=== PATIENT | male | born 1985 | race Caucasian/White ===

== ENCOUNTER 2016-11-20 22:32 | Emergency (ER) | payer OTHER ==
[~2016-11-20] VITALS: Ht 188 cm; Wt 102.6 kg
[2016-11-20 23:48] LABS: EOSINOPHIL (%) 0.3 % (0-5); HEMATOCRIT 35.3 % (38.0-50.0); IMMATURE GRANULOCYTE (%) 1.6 % (0.0-0.7); IMMATURE GRANULOCYTE COUNT 1.5 K/uL; LYMPHOCYTE COUNT 1.2 K/uL (1.0-2.8); MCH 25.1 PG (29.0-34.0); MCHC 32.3 G/DL (30.0-36.0); MCV 77.6 FL (86-99); MEAN PLAT.VOLUME 9.7 uM^3 (9.0-12.4); MONOCYTE (%) 7.8 % (3-12); MONOCYTE COUNT 0.7 K/uL (0-0.8); NEUTROPHIL (%) 76.9 % (45-76); PLATELET COUNT 370 K/uL (156-360); RBC DIS.WIDTH-CV 15.4 % (11.8-14.6); RBC DIS.WIDTH-SD 41.9 % (39-53); RED BLOOD COUNT 4.55 M/uL (4.00-5.50); WHITE BLOOD COUNT 9.1 K/uL (4.1-10.2)
[2016-11-20 23:58] LABS: CHLORIDE 109 mEq/L (99-109); POTASSIUM 4.2 mEq/L (3.7-5.4); SODIUM 141 mEq/L (136-147)
[2016-11-21] LABS: GLUCOSE 95 mg/dL (70-99)
[2016-11-21 00:01] LABS: ANION GAP 9 MEQ/L (2-14)
[2016-11-21 00:02] LABS: ADD MIUA? NO; BILIRUBIN NEGATIVE; BLOOD NEGATIVE; COLOR YELLOW ((YELLOW)); GLUCOSE (STRIP) NEGATIVE; KETONES NEGATIVE; LEUKOCYTES NEGATIVE; NITRITE NEGATIVE; PROTEIN (STRIP) TRACE; SPECIFIC GRAVITY 1.015 (1.000-1.030); UCUL ADDED? NO; UROBILINOGEN 0.2 MG/DL (0.2-1.0)
[2016-11-21 00:02] LABS: TOTAL BILIRUBIN 0.2 mg/dL (0.0-1.0)
[2016-11-21 00:03] LABS: SERUM ETHYL ALCOHOL < 10 mg/dL
[2016-11-21 00:04] LABS: ALKALINE PHOSPHATASE 76 IU/L (3-129); GFR ESTIMATE (CALCULATED) > 59 mL/min/
[2016-11-21 00:05] LABS: UREA NITROGEN (BUN) 6 mg/dL (9-23)
[2016-11-21 00:16] LABS: AMPHETAMINE NEGATIVE (500 ng/mL); BENZODIAZEPINES NEGATIVE (150 ng/mL); COCAINE PRESUMPTIVE POSITIVE (150 ng/mL); METHADONE PRESUMPTIVE POSITIVE (200 ng/mL); METHAMPHETAMINE NEGATIVE (500 ng/mL); OPIATES (MORPHINE) PRESUMPTIVE POSITIVE (100 ng/mL); PHENCYCLIDINE NEGATIVE (25 ng/mL); THC CANNABINOIDS NEGATIVE (50 ng/mL); TRICYCLIC ANTIDEPRESSANTS NEGATIVE (300 ng/mL)
[2016-11-21 00:17] LABS: ADD MEDTOX COMMENT Y; BARBITURATES NEGATIVE (200 ng/mL); INTERNAL CONTROLS VALID? YES; OXYCODONE NEGATIVE (100 ng/mL); PROPOXYPHENE NEGATIVE (300 ng/mL)
[2016-11-21] MEDS ORDERED: TORADOL10 MG PO (01:28)
[2016-11-21 02:07] VITALS: BP 126/81
== END 2016-11-21 02:08 | disposition home or self-care (01) ==
LOC: EME → EDBD 22:32 → EME 22:32
PROVIDERS: Emergency Medicine
DX: R56.9 Unspecified convulsions (principal); M54.9 Dorsalgia, unspecified; S20.212A Contusion of left front wall of thorax, initial encounter; F19.10 Other psychoactive substance abuse, uncomplicated; W18.30XA Fall on same level, unspecified, initial encounter; Y92.009 Unspecified place in unspecified non-institutional (private) residence as the place of occurrence of the external cause; F17.200 Nicotine dependence, unspecified, uncomplicated
CPT/HCPCS: 70450; 71010; 80053; 81003; 83605; 84999; 85025; 87040; 93005; 99281; 99285; G0480; J1885; J2405; J3010; J7030

== ENCOUNTER 2017-09-20 13:20 | Emergency (ER) | payer OTHER ==
[~2017-09-20] VITALS: Ht 182.9 cm; Wt 105.1 kg
[~2017-09-20 13:20] MED LIST: TORADOL10 MG PO
[2017-09-20 14:43] VITALS: BP 115/78
== END 2017-09-20 14:44 | disposition left against medical advice (07) ==
LOC: EME 13:20
DX: F11.10 Opioid abuse, uncomplicated (principal); F17.200 Nicotine dependence, unspecified, uncomplicated

== ENCOUNTER 2017-09-20 16:39 | Inpatient (IN) | payer OTHER ==
[~2017-09-20] VITALS: Ht 188 cm; Wt 108.9 kg
[2017-09-20 21:17] LABS: EOSINOPHIL (%) 0.1 % (0-5); HEMATOCRIT 31.6 % (38.0-50.0); IMMATURE GRANULOCYTE (%) 0.9 % (0.0-0.7); IMMATURE GRANULOCYTE COUNT 0.1 K/uL; INSTRUMENT ABS NEUTROPHIL CT 10.1 K/uL; LYMPHOCYTE COUNT 0.8 K/uL (1.0-2.8); MCH 24.1 PG (29.0-34.0); MCHC 31.6 G/DL (30.0-36.0); MCV 76.1 FL (86-99); MEAN PLAT.VOLUME 9.1 uM^3 (9.0-12.4); MONOCYTE (%) 5.8 % (3-12); MONOCYTE COUNT 0.7 K/uL (0-0.8); NEUTROPHIL (%) 86.5 % (45-76); NEUTROPHIL COUNT 10.1 K/uL (1.8-6.4); PLATELET COUNT 318 K/uL (156-360); RBC DIS.WIDTH-CV 17.2 % (11.8-14.6); RBC DIS.WIDTH-SD 47.7 % (39-53); RED BLOOD COUNT 4.15 M/uL (4.00-5.50); WHITE BLOOD COUNT 11.7 K/uL (4.1-10.2)
[2017-09-20 21:28] LABS: INTER. NORMALIZED RATIO 1.4; PROTHROMBIN TIME 15.7 SEC (10.2-12.9)
[2017-09-20 21:31] LABS: CHLORIDE 100 mEq/L (99-109); POTASSIUM 3.7 mEq/L (3.7-5.4); PTT 34.7 SEC (25-37); SODIUM 141 mEq/L (136-147)
[2017-09-20 21:32] LABS: MAGNESIUM 2.1 mg/dL (1.3-2.7)
[2017-09-20 21:34] LABS: GLUCOSE 133 mg/dL (70-99)
[2017-09-20 21:35] LABS: ANION GAP 13 MEQ/L (2-14)
[2017-09-20 21:36] LABS: TOTAL BILIRUBIN 0.4 mg/dL (0.0-1.0)
[2017-09-20 21:37] LABS: ALKALINE PHOSPHATASE 97 IU/L (3-129); SERUM ETHYL ALCOHOL < 10 mg/dL
[2017-09-20 21:38] LABS: GFR ESTIMATE (CALCULATED) > 59 mL/min/
[2017-09-20 21:39] LABS: UREA NITROGEN (BUN) 11 mg/dL (9-23)
[2017-09-20 21:52] LABS: ERTH.SED.RATE 128 MM/HR (0-15)
[2017-09-21 03:58] LABS: ADD MIUA? YES; BILIRUBIN NEGATIVE; BLOOD SMALL; COLOR AMBER ((YELLOW)); GLUCOSE (STRIP) NEGATIVE; KETONES NEGATIVE; LEUKOCYTES SMALL; NITRITE POSITIVE; PROTEIN (STRIP) 100; SPECIFIC GRAVITY 1.019 (1.000-1.030)
[2017-09-21 04:39] LABS: BACTERIA RARE /HPF; BUDDING YEAST 2+; EPITHELIAL CELLS RARE /HPF; MUCUS 1+ /LPF; RED BLOOD CELLS 0-5 /HPF (0-5); UCUL ADDED? YES; WHITE BLOOD CELLS 30-40 /HPF (0-5); WHITE BLOOD CELLS CLUMP RARE /HPF (0-5)
[2017-09-21 05:45] VITALS: BP 134/73
[2017-09-21 08:18] VITALS: BP 141/79
[2017-09-21 12:35] VITALS: BP 133/79
[2017-09-21 16:23] VITALS: BP 128/59
[2017-09-21 20:02] VITALS: BP 138/84
[2017-09-21 23:31] VITALS: BP 145/74
[2017-09-22 03:56] VITALS: BP 159/78
[2017-09-22 07:24] VITALS: BP 131/71
[2017-09-22 20:20] VITALS: BP 134/76
[2017-09-23 00:03] VITALS: BP 131/79
[2017-09-23 03:44] VITALS: BP 132/72
[2017-09-23 08:09] VITALS: BP 127/61
[2017-09-23 10:14] LABS: EOSINOPHIL (%) 2.9 % (0-5); EOSINOPHIL COUNT 0.3 K/uL (0-0.3); HEMATOCRIT 28.4 % (38.0-50.0); IMMATURE GRANULOCYTE (%) 3.3 % (0.0-0.7); IMMATURE GRANULOCYTE COUNT 0.4 K/uL; LYMPHOCYTE COUNT 1.4 K/uL (1.0-2.8); MCH 24.1 PG (29.0-34.0); MCHC 31.7 G/DL (30.0-36.0); MCV 76.1 FL (86-99); MEAN PLAT.VOLUME 9.5 uM^3 (9.0-12.4); MONOCYTE (%) 7.2 % (3-12); MONOCYTE COUNT 0.8 K/uL (0-0.8); NEUTROPHIL (%) 73.3 % (45-76); PLATELET COUNT 385 K/uL (156-360); RBC DIS.WIDTH-CV 16.9 % (11.8-14.6); RBC DIS.WIDTH-SD 46.4 % (39-53); RED BLOOD COUNT 3.73 M/uL (4.00-5.50); WHITE BLOOD COUNT 10.8 K/uL (4.1-10.2)
[2017-09-23 11:03] LABS: ANION GAP 12 MEQ/L (2-14); CHLORIDE 101 MEQ/L (99-109); GFR ESTIMATE (CALCULATED) > 59 mL/min/; MAGNESIUM 2.1 mg/dl (1.3-2.7); POTASSIUM 4.3 MEQ/L (3.7-5.4); SAMPLE HEMOLYSIS CHECK 0; SAMPLE ICTERIC CHECK 0; SAMPLE LIPEMIA CHECK 0; SODIUM 137 MEQ/L (136-147); UREA NITROGEN (BUN) 8 mg/dL (9-23); VANCOMYCIN, TROUGH 12.9 MCG/ML (10-20)
[2017-09-23 11:10] LABS: GLUCOSE 95 mg/dL (70-99)
[2017-09-23 15:27] VITALS: BP 132/72
[2017-09-23 23:17] VITALS: BP 121/72
[2017-09-24 07:39] VITALS: BP 136/62
[2017-09-24 16:34] VITALS: BP 136/74
[2017-09-24 23:43] VITALS: BP 128/67
[2017-09-25 07:54] VITALS: BP 129/68
== END 2017-09-25 10:54 | disposition left against medical advice (07) | DRG 488 ==
LOC: EME 16:39 → 3EAST 09-21 03:24 → EDOF 09-21 03:24 → ENRESERV 09-21 03:25 → 3EAST 09-21 05:38
PROVIDERS: Emergency Medicine; Internal Medicine
PROC: 0S9C3ZZ Drainage of Right Knee Joint, Percutaneous Approach (ICD-10-PCS; principal; 2017-09-21)
PROC: 0S9C3ZZ Drainage of Right Knee Joint, Percutaneous Approach (ICD-10-PCS; 2017-09-21)
PROC: 0SBC4ZZ Excision of Right Knee Joint, Percutaneous Endoscopic Approach (ICD-10-PCS; 2017-09-21)
DX: M00.9 Pyogenic arthritis, unspecified (principal); R78.81 Bacteremia; B95.62 Methicillin resistant Staphylococcus aureus infection as the cause of diseases classified elsewhere; M65.9 Synovitis and tenosynovitis, unspecified; K21.9 Gastro-esophageal reflux disease without esophagitis; D64.9 Anemia, unspecified; D68.9 Coagulation defect, unspecified; E88.09 Other disorders of plasma-protein metabolism, not elsewhere classified; F11.20 Opioid dependence, uncomplicated; F17.210 Nicotine dependence, cigarettes, uncomplicated; G89.29 Other chronic pain; M54.5 Low back pain; G40.909 Epilepsy, unspecified, not intractable, without status epilepticus; M96.1 Postlaminectomy syndrome, not elsewhere classified; S51.802A Unspecified open wound of left forearm, initial encounter; S51.801A Unspecified open wound of right forearm, initial encounter; X58.XXXA Exposure to other specified factors, initial encounter; S83.511A Sprain of anterior cruciate ligament of right knee, initial encounter; X50.9XXA Other and unspecified overexertion or strenuous movements or postures, initial encounter; E66.9 Obesity, unspecified; T40.1X1A Poisoning by heroin, accidental (unintentional), initial encounter; R40.0 Somnolence; Z68.30 Body mass index [BMI] 30.0-30.9, adult; Z98.1 Arthrodesis status
CPT/HCPCS: 72131; 73564; 80048; 80048 91; 80053; 80202; 81003; 83605; 83735; 85025; 85027; 85610; 85651; 85730; 86141; 87040; 87070; 87075; 87077; 87086; 87147; 87186; 87205; 87801; 89051; 89060; 93306; 93971; 97530 GP; 99281; 99285; A6260; G0480; J0131; J0690; J1170; J1650; J1885; J2250; J2270; J2405; J3010; J3370; J7030